=== PATIENT | female | born 1970 | race Caucasian/White ===

== ENCOUNTER 2018-06-10 04:08 | Emergency (ER) | payer OTHER ==
[~2018-06-10] VITALS: Ht 160 cm; Wt 77.1 kg
--- OUTSIDE RECORDS SUMMARY | ~2018-06-10 | XMS ---
Demographics + + + | Address | [address] | | | [place] [address] | + + + | Preferred Language | Unknown | + + + | Marital Status | Unknown | + + + | Caodaism Affiliation | Unknown | + + + | Race | Unknown | + + + | Ethnic Group | Unknown | + + + Author + + + | Author | [facility] | + + + | Organization | [facility] | + + + | Address | 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 | | | burn of | | | | | | | | right ear | | | | | | | | except ear | | | | | | | | drum | | | | | | + + + + + + + + | Assessment | Strain of | | S66.911A | Jun, | Active | [id number] | | | unspecifie | | | 2016 | | | | | d muscle, | | | | | | | | fascia and | | | | | | | | tendon at | | | | | | | | wrist and | | | | | | | | hand | | | | | | | | level, | | | | | | | | right | | | | | | | | hand, | | | | | | | | initial | | | | | | | | encounter | | | | | | + + + + + + + + | Assessment | Finger | S62.609A | | Jun, | Active | [id number] | | | fracture, | | | 2016 | | | | | right | | | | | | + + + + + + + + ALLERGIES + + + + +--------+ | Substance | Reaction | Event Type | Date | Status | + + + + +--------+ | Codeine | Unknown | Drug Allergy | Jun, | Active | + + + + +--------+ SOCIAL HISTORY No smoking Hx information available PLAN OF CARE + +---------+ | Activity | Details | + +---------+ +---+ | | +---+ + + + | Pending Test | X ray : Finger RT 2nd Digit 2+views | + + + | | prn,Reason: | + + + VITAL SIGNS + + + + | Height | 63 in | 2016-06-09 | + + + + | Weight | 163.3 lbs | 2016-06-09 | + + + + | BMI | 28.92 kg/m2 | 2016-06-09 | + + + + | Temperature | 98.1 degrees Fahrenheit | 2016-06-09 | + + + + | Heart Rate | 83 /min | 2016-06-09 | + + + + | Blood pressure systolic | 136 mm Hg | 2016-06-09 | + + + + | Blood pressure diastolic | 91 mm Hg | 2016-06-09 | + + + + MEDICATIONS + + + + +--------+ + +--------+ | Medicati | Instruct | Dosage | Frequenc | Start | End Date | Duration | Status | | on | ions | | y | Date | | | | + + + + +--------+ + +--------+ | Adderall | Orally | 1 tablet | 24h | | | | Active | | 20 MG | Once a | in the | | | | | | | | day | morning | | | | | | + + + + +--------+ + +--------+ | Synthroi | Orally | 1 tablet | 24h | | | | Active | | d 100 | Once a | | | | | | | | MCG | day | | | | | | | + + + + +--------+ + +--------+ RESULTS No Results PROCEDURES + + + + + | Procedure | Date Ordered | Related Diagnosis | Body Site | + + + + + | Est Level III | June 09, 2016 | | | | Intermediate | | | | + + + + + IMMUNIZATIONS No Known Immunizations"
--- OUTSIDE RECORDS SUMMARY | ~2018-06-10 | XMS ---
Demographics + + + | Address | [address] | | | [place] [address] | + + + | Preferred Language | Unknown | + + + | Marital Status | Unknown | + + + | Mu-Ism Affiliation | Unknown | + + + | Race | Unknown | + + + | Ethnic Group | Unknown | + + + Author + + + | Author | [facility] | + + + | Organization | [facility] | + + + | Address | 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
--- OUTSIDE RECORDS SUMMARY | 2018-06-10 04:10 | XMS ---
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 [place] has no Care Guidelines for this patient. Radhames VISIT COUNT (12 MO.) 1 CHAVA Vanessa TOTAL 1 NOTE: Visits indicate total known visits. ED/C VISIT TRACKING (12 MO.) 06/10/2018 04:08 CHAVA Manuel [place] TYPE: Emergency COMPLAINT: - LOWER BACK PAIN INPATIENT VISIT TRACKING (12 MO.) No inpatient visits to display in this time frame [email or web address]
[2018-06-10] MEDS ORDERED: NAPROXEN500 MG PO (04:22)
[2018-06-10] MEDS ORDERED: CYCLOBENZAPRINE5 MG PO (04:22)
[2018-06-10] MEDS ORDERED: NP THYROID60 MG PO (04:22)
[2018-06-10] MEDS ORDERED: DEXTROAMP-AMPHE20 MG PO (04:22)
[2018-06-10] MEDS ORDERED: AMPHETAMINE SAL20 MG PO (04:22)
== END 2018-06-10 05:18 | disposition home or self-care (01) ==
LOC: ED 04:08
DX: R10.9 Unspecified abdominal pain (principal); E03.9 Hypothyroidism, unspecified; Z88.5 Allergy status to narcotic agent; Z79.899 Other long term (current) drug therapy
CPT/HCPCS: 74176; 99284-25